=== PATIENT | female | born 1980 | race African-American/Black ===

== ENCOUNTER 2016-08-11 17:17 | Emergency (ER) ==
[2016-08-11] MEDS ORDERED: DECADRON IM ONE (18:40)
--- NOTE | 2016-08-11 18:43 | PROVIDER DOCUMENTATION ---
HPI-EENT General - General Chief Complaint: Sore Throat Stated Complaint: SORE THRAOT/EARACHE Time Seen by Provider: 08/11/16 18:00 Source: patient Allergies/Adverse Reactions: Patient Allergies Allergy/AdvReac Type Severity Reaction Status Date / Time No Known Allergies Allergy Verified 05/13/16 21:29 Home Medications: Home Medication List Medication Instructions Recorded Confirmed Last Taken Type Lisinopril 20 mg PO QAM #30 tablet 05/06/14 06/26/16 1 Month Ago Rx Rizatriptan Benzoate [Maxalt] 5 mg PO PRN PRN 12/29/15 06/26/16 12/30/15 08:00 History Topiramate [Topamax] 100 mg PO HS 12/29/15 06/26/16 1 Month Ago History Insulin Novolog 70/30 [Novolog Mix 42 unit .SEE ORDER BID 05/13/16 06/26/16 1 Month Ago History 70/30] Sitagliptin Phos/Metformin HCl 1 tab PO DAILY 05/13/16 06/26/16 1 Month Ago History [Janumet Xr 100-1,000 mg Tablet] Glimepiride [Amaryl] 4 mg PO DAILY #30 tablet 06/27/16 Unknown Rx Metformin [Glucophage] 500 mg PO BID CC #60 tablet 06/27/16 Unknown Rx Diphenhyramine/Al&mg Oh/Lido [Mbx 15 ml MT 4XDAY PRN PRN #1 bottle 08/11/16 Unknown Rx Solution] Loratadine/Pse E.r. 24 Hr 1 each PO DAILY #20 tablet 08/11/16 Unknown Rx [Claritin-D 24 Hr] Penicillin V Potassium 500 mg PO BID #20 tablet 08/11/16 Unknown Rx - History of Present Illness-EENT General Nature of Presenting Problem: 35 y/o BF presents to the ED for sore throat, ear pain x 2 days, cough x 4 days. States cough is not productive. Denies fever/chills, N/V/D/C, abd. pain. States works in [employer] and family had to be quarantined this week due to illness; only workers allowed access to patients. Pt has had influenza vaccine. Denies any OTC medication use at home. Review of Systems - Adult - REVIEW OF SYSTEMS - ADULT Constitutional: reports: no symptoms reported. denies: chills, fever Eyes: reports: no symptoms reported. denies: blurred vision, double vision Ears, Nose, Mouth & Throat: reports: see HPI, ear pain, throat pain. denies: nose pain Cardiovascular: reports: no symptoms reported. denies: chest pain, palpitations Respiratory: reports: see HPI, cough. denies: shortness of breath Gastrointestinal: reports: no symptoms reported. denies: abdominal pain, diarrhea, nausea, vomiting Genitourinary: reports: no symptoms reported. denies: dysuria, frequency Musculoskeletal: reports: no symptoms reported. denies: joint pain, joint swelling Integumentary: reports: no symptoms reported. denies: nail changes, rash Neurological: reports: no symptoms reported. denies: headache/migraines, numbness, paresthesia Psychiatric: reports: no symptoms reported Endocrine: reports: no symptoms reported. denies: cold intolerance, heat intolerance Hematologic/Lymphatic: reports: no symptoms reported. denies: easy bruising, prolonged bleeding Allergic/Immunologic: reports: no symptoms reported All Other Systems: Reviewed and Negative Past History - Adult - PAST MEDICAL HISTORY-ADULT Review of Records: reports: Nursing Assessment Review, Medications Reviewed Major Childhood Illnesses: reports: denies history Cardiovascular: reports: HTN Respiratory: reports: denies history Gastrointestinal: reports: denies history Obstetrical/Gynecological: reports: denies history Genitourinary: reports: denies history Musculoskeletal: reports: denies history Neurological: reports: headaches/migraines, other (migraine RUDOLPH) Psychiatric: reports: depression Endocrine/Immune: reports: Diabetes Other Conditions: reports: denies history - PRIOR SURGERIES/PROCEDURES Surgical/Procedure History: reports: (x3), other (D & C) - PRIOR HOSPITALIZATIONS Prior Hospitalizations: reports: none - IMMUNIZATION STATUS Childhood Immunizations: See Nurse Assessment Flu Vaccine: See Nurse Assessment - FAMILY HISTORY Family History: reviewed, not pertinent - SOCIAL HISTORY Smoking: denies Physical Exam- EENT - Physical Exam EENT Initial Vital Signs Reviewed: Yes General Appearance: alert, mild distress Eye Exam: bilateral eye: normal inspection Ear Exam: bilateral ear: auricle normal, canal normal, TM normal Nasal Exam: normal inspection. negative: sinus tenderness Throat Exam: normal mouth inspection, tonsillar exudate, tonsillar swelling. negative: pharynx normal (erythema) Neck: supple, normal inspection, lymphadenopathy (ant. cervical) Respiratory: lungs clear, normal breath sounds. negative: crackles, rales, rhonchi, stridor, wheezing Cardiovascular: regular rate, rhythm. negative: bradycardia, tachycardia Lymphatic: cervical node tenderness Back Exam: normal inspection Extremity: normal gait Integumentary: normal color, normal turgor, warm/dry Neurologic: negative: aphasia Psych/Mental Status: normal mood/affect, normal thought content, normal thought process, oriented x 3 Progress - PLAN OF CARE/RESULTS Progress/Plan/Lab Results: Laboratory Tests 08/11/16 18:40 Group A Strep Rapid POSITIVE A Orders Category Date Time Status DIRECT STREP PL Stat Lab 08/11/16 18:40 Completed Dexamethasone [Decadron] Med 08/11/16 18:40 Discontinued 10 mg IM NOW ONE Vital Signs Temp Pulse Resp BP Pulse Ox 08/11/16 19:03 98.3 F 94 H 20 148/97 98 08/11/16 17:20 97.8 F 94 H 18 140/76 100 No Known Allergies Allergy (Verified 05/13/16 21:29) Lisinopril 20 mg PO QAM #30 tablet 05/06/14 Rizatriptan Benzoate [Maxalt] 5 mg PO PRN PRN 12/29/15 Topiramate [Topamax] 100 mg PO HS 12/29/15 Insulin Novolog 70/30 [Novolog Mix 70/30] 42 unit .SEE ORDER BID 05/13/16 Sitagliptin Phos/Metformin HCl [Janumet Xr 100-1,000 mg Tablet] 1 tab PO DAILY 05/13/16 Glimepiride [Amaryl] 4 mg PO DAILY #30 tablet 06/27/16 Metformin [Glucophage] 500 mg PO BID CC #60 tablet 06/27/16 Diphenhyramine/Al&mg Oh/Lido [Mbx Solution] 15 ml MT 4XDAY PRN PRN #1 bottle 08/25 Loratadine/Pse E.r. 24 Hr [Claritin-D 24 Hr] 1 each PO DAILY #20 tablet Penicillin V Potassium 500 mg PO BID #20 tablet 08/11/16 TYPE 2 DIABETES MELLITUS WITHOUT COMPLICATIONS (08/11/16) OTALGIA, UNSPECIFIED EAR (08/11/16) ESSENTIAL (PRIMARY) HYPERTENSION (08/11/16) ACUTE PHARYNGITIS, UNSPECIFIED (08/11/16) COUGH (08/11/16) LOCALIZED SWELLING, MASS AND LUMP, NECK (08/11/16) HEADACHE (08/11/16) LOCALIZED ENLARGED LYMPH NODES (08/11/16) RETIREMENT (CURRENT) USE OF INSULIN (08/11/16) OTHER RETIREMENT (CURRENT) DRUG THERAPY (08/11/16) Departure - Departure Time of Disposition Order: 18:37 DIAGNOSIS: Cough Pharyngitis Qualifiers: Pharyngitis/tonsillitis etiology: unspecified etiology Qualified Code(s): J02.9 - Acute pharyngitis, unspecified Ear pain Qualifiers: Laterality: unspecified laterality Qualified Code(s): H92.09 - Otalgia, unspecified ear Disposition: HOME 01 Certified Medical Emergency: Emergent Condition: Stable Additional Instructions: Take medications as directed. Follow up with PCP for further management. Return if symptoms get worse. ED Follow Up Instructions: You have been treated by a care provider in the Emergency Department. These instructions are being provided to you so you can have an understanding of how to care for yourself upon discharge. Upon discharge from the Emergency Department, you are responsible for making arrangements for follow-up care by a physician of your choice. Take all prescribed medications as directed. Return to the Emergency Department immediately for any new or worsening symptoms. You may call the Physician Referral phone number at [phone] to obtain a list of Physicians who are taking new patients. Prescriptions: Loratadine/Pse E.r. 24 Hr [Claritin-D 24 Hr] 1 each PO DAILY #20 tablet Diphenhyramine/Al&mg Oh/Lido [Mbx Solution] 15 ml MT 4XDAY PRN PRN #1 bottle PRN Reason: Pain Penicillin V Potassium 500 mg PO BID #20 tablet Referrals: Aide Rolle MD [Primary Care Provider] - Forms: Return to School/Parent Work Instructions: Penicillin V tablets, Cough, Adult, [id number], Loratadine; Pseudoephedrine tablets, Pharyngitis, [id number] Attestation - Physician/ JOSH Attestation Patient care was provided by Advanced Practice Provider:: Yes Advanced Practice Provider:: Gena Regan Advanced Practice Provider documentation review:: The Mid-level provider documentation, treatment plan and medical decision making was reviewed by the physician who agrees with all treatment and medical decision making by the MLP.
[2016-08-11 19:03] VITALS: BP 148/97
== END 2016-08-11 19:03 | disposition home or self-care (01) ==
LOC: P.ED 17:17
DX: J02.9 Acute pharyngitis, unspecified (principal); H92.09 Otalgia, unspecified ear; R05 Cough; I10 Essential (primary) hypertension; E11.9 Type 2 diabetes mellitus without complications; R51 Headache; R59.0 Localized enlarged lymph nodes; R22.1 Localized swelling, mass and lump, neck; Z79.899 Other long term (current) drug therapy; Z79.4 Long term (current) use of insulin
CPT/HCPCS: 87430; 96372